=== PATIENT | male | born 2000 | race Hispanic/Latino ===

== ENCOUNTER 2020-01-09 10:39 | Emergency (ER) | payer SELFPAY ==
[~2020-01-09] VITALS: Ht 172.7 cm; Wt 56.7 kg
--- NOTE | 2020-01-09 11:09 | Emergency Department Note ---
History of Present Illnes History of Present Illness Chief Complaint: General Medicine Complaints History of Present Illness This is a 19 year old male LAST NIGHT HAD TINGLING TO RIGHT EYE, TODAY WITH SWELLING AND DRAINAGE; PATIENT DENIES PAIN, BUT HAS BLURRY VISION. PATIENT STATES THAT FOR THE LAST COUPLE OF MONTHS HE HAS HAD ISSUES WITH HIVES AND HAS BEEN TAKING BENADRYL. Historian: Patient Arrival Mode: Car Security Incident Response Engineer Required: No Onset (how long ago): day(s) (1) Location: RIGHT EYE Severity: mild Onset quality: sudden Timing of current episode: constant Chronicity: new Context: Denies recent illness Relieving factors: none Exacerbating factors: none Past Medical/Family History Physician Review I have reviewed the patient's past medical and family history. Any updates have been documented here. Past Medical History Recent Fever: No Clinical Suspicion of Infectio: No New/Unexplained Change in Ment: No Past Medical History: None Past Surgical History: None Social History Smoking Cessation: Never Smoker Counseling Performed: No Alcohol Use: None Any Illegal Drug Use: No TB Exposure/Symptoms: No Physically hurt or threatened: No Family History Family history of heart diseas: No Other Any Pre-Existing Lines (PICC,: No Review of Systems Review of Systems Constitutional: Reports no symptoms EENTM: Reports as per HPI; Denies eye pain Cardiovascular: Reports no symptoms Respiratory: Reports no symptoms Gastrointestinal: Reports no symptoms Genitourinary: Reports no symptoms Musculoskeletal: Reports no symptoms Integumentary: Reports no symptoms Neurological: Reports no symptoms Psychological: Reports no symptoms Endocrine: Reports no symptoms Hematological/Lymphatic: Reports no symptoms Physical Exam Related Data Allergies: Coded Allergies: No Known Allergies (Unverified , 01/09/20) Triage Vital Signs Vital Signs Date Time Temp Pulse Resp B/P (MAP) Pulse Ox O2 Delivery O2 Flow Rate FiO2 01/09/20 10:45 97.9 97 16 131/88 100 Room Air Vital signs reviewed: Yes Physical Exam CONSTITUTIONAL Constitutional: Present well-developed, Present well-nourished HENT HENT: Present normocephalic, Present atraumatic, Present oropharynx clear/moist, Present nose normal HENT L/R: Present left ext ear normal, Present right ext ear normal EYES Eyes: Reports PERRL, Reports EOM normal, Reports other (MILD RIGHT CONJ INJECTION, MILD CRUST ON RIGHT BOTTOM LID MARGIN, MILD SWELLING OF MEDIAL ASPECT OF RIGHT LOWER LID BUT NO STYE NOTED); Denies left eye discharge, Denies right eye discharge NECK Neck: Present ROM normal PULMONARY Pulmonary: Present effort normal, Present breath sounds normal CARDIOVASCULAR Cardiovascular: Present regular rhythm, Present heart sounds normal, Present capillary refill normal, Present normal rate GASTROINTESTINAL Abdominal: Present soft, Present nontender, Present bowel sounds normal GENITOURINARY Genitourinary: Present exam deferred SKIN Skin: Present warm, Present dry MUSCULOSKELETAL Musculoskeletal: Present ROM normal NEUROLOGICAL Neurological: Present alert, Present oriented x 3, Present no gross motor or sensory deficits PSYCHOLOGICAL Psychological: Present mood/affect normal, Present judgement normal Assessment & Plan Medical Decision Making MDM CONJUNCTIVITIS/BLAPHARITIS Reassessment Reassessment DC HOME, POLYTRIM SOLN 1 GTT Q3H RIGHT EYE X 1 WEEK, LID SCRUBS WITH CETAPHIL GENTLE, WARM COMPRESSES, F/U PCP/OPHTHO DR GREGORY Assessment & Plan Final Impression: (1) Conjunctivitis (2) Blepharitis of eyelid of right eye Depart Disposition: HOME, SELF-CARE Last Vital Signs Date Time Temp Pulse Resp B/P (MAP) Pulse Ox O2 Delivery O2 Flow Rate FiO2 01/09/20 10:45 97.9 97 16 131/88 100 Room Air CLARY COOMBS MD Jan 09, 2020 11:09
--- OUTSIDE RECORDS SUMMARY | 2020-01-10 16:38 | XMS REPORT | Clinical Summary ---
Author Author [facility] Address Unknown Phone Unavailable Care Team Providers Care Salad Bar Clerk Name Role Phone PCP Unavailable Allergies No Known Allergies Medications End Date Status Medication Sig Dispensed Refills Start Date Active diphenhydrAMINE Take 25 mg by 0 (BENADRYL) 25 mg capsule mouth every 6 (six) hours as needed for Itching. 07/08/2020 Active albuterol HFA (VENTOLIN Inhale 1-2 1 Inhaler 0 HFA) 90 mcg/actuation puffs by 0 inhaler mouth via inhaler every 6 (six) hours as needed for Wheezing. Active Problems Not on file Encounters Care Team Description Date Type Specialty Roosevelt Grimaldo MD Dyspnea, unspecified type (Primary Dx) 07/09/2019 Emergency Emergency Medicine 07/09/2019 Orders Only General Internal Me dicine 07/09/2019 Travel after 01/08/2019 Family History Medical History Relation Name Comments Asthma Father Heart disease Father Asthma Mother Relation Name Status Comments Father Mother Social History Date Tobacco Use Types Packs/Day Years Used Never Smoker Smokeless Tobacco: Never Used Alcohol Use Drinks/Week oz/Week Comments No Alcohol Habits Answer Date Recorded How often do you have a drink containing alcohol? Never 07/09/2019 How many drinks containing alcohol do you have on No t asked a typical day when you are drinking? How often do you have six or more drinks on one Not asked occasion? Sex Assigned at Date Recorded Not on file Industry Job Start Date Occupation Not on file Not on file Not on file Travel End Travel History Travel Start No recent travel history available. Last Filed Vital Signs Time Taken Vital Sign Reading 07/09/2019 1:07 PM CDT Blood Pressure 130/83 07/09/2019 1:07 PM CDT Pulse 90 07/09/2019 1:07 PM CDT Temperature 36.3 C (97.4 F) 07/09/2019 1:07 PM CDT Respiratory Rate 16 07/09/2019 1:07 PM CDT Oxygen Saturation 100% - Inhaled Oxygen - Concentration 07/09/2019 1:07 PM CDT Weight 59 kg (130 lb) 07/09/2019 1:07 PM CDT Height 177.8 cm (5' 10") 07/09/2019 1:07 PM CDT Body Mass Index 18.65 Plan of Treatment Not on file Procedures Comments Procedure Name Priority Date/Time Associated Diag nosis REPORT OF PROCEDURE - 07/10/2019 ENDOSCOPY SCAN 1:00 PM CDT REPORT OF PROCEDURE - 07/10/2019 ENDOSCOPY SCAN 1:00 PM CDT ECG 12-LEAD STAT 07/09/2019 2:31 PM CDT ED ECG INTERPRETATION Routine 07/09/2019 1:36 PM CDT ECG 12-LEAD Routine 07/09/2019 1:01 PM CDT ECG 12-LEAD Routine 07/09/2019 1:01 PM CDT Procedure Note - Interface, External Ris In - 07/09/2019 1:14 PM CDT Ventricula r Rate 78 BPM Atrial Rate 78 BPM P-R Interval 118 ms QRS Duration 80 ms Q-T Interval 368 ms QTC Calculatio n(Bazett) 419 ms P Wayside 29 degrees R Wayside 79 degrees T Wayside 56 degrees Normal sinus rhythm Normal ECG No previous ECGs available after 01/08/2019 Results * EKG-SCANNED (07/10/2019 1:00 PM CDT) Only the most recent of 2 results within the time period is included. Narrative Performed At This result has an attachment that is n ot available. * ECG 12 lead (07/09/2019 2:31 PM CDT) Only the most recent of 2 results within the time period is included. Specimen Narrative Performed At Ventricular Rate 79 BPM GE MUSE Atrial Rate 79 BPM P-R Interval 134 ms QRS Duration 82 ms Q-T Interval 366 ms QTC Calculation(Bazett) 419 ms P Wayside 60 degrees R Wayside 75 degrees T Wayside 55 degrees Normal sinus rhythm with sinus arrhythm ia Normal ECG When compared with ECG of 09-JUL-2019 1 3:01, No significant change was found Confirmed by MD GEOFFREY, BELLA ([id number] ) on 07/12/2019 7:16:03 PM Procedure Note Interface, External Ris In - 07/12/2019 7:16 PM CDT Ventricular Rate 79 BPM Atrial Rate 79 BPM P-R Interval 134 ms QRS Duration 82 ms Q-T Interval 366 ms QTC Calculation(Bazett) 419 ms P Wayside 60 degrees R Wayside 75 degrees T Wayside 55 degrees Normal sinus rhythm with sinus arrhythmia Normal ECG When compared with ECG of 09-JUL-2019 13:01, No significant change was found Confirmed by MD GEOFFREY, BELLA ([id number]) on 07/12/2019 7:16:03 PM Performing Organization Address City/State/[facility] Ph one Number GE MUSE * ECG/EKG Interpretation (07/09/2019 1:36 PM CDT) Narrative Performed At Roosevelt Grimaldo MD 07/09/2019 2:35 PM ECG/EKG Interpretation Date/Time: 07/09/2019 2:35 PM Performed by: Roosevelt Grimaldo MD Authorized by: Roosevelt Grimaldo MD The ECG was interpreted by ED physician . The ECG is interpreted as sinus rhythm. Rate is normal rate. Clinical I mpression: non-specific ECG after 01/08/2019
--- OUTSIDE RECORDS SUMMARY | 2020-01-10 16:39 | XMS REPORT | Continuity of Care Document ---
Author Author [facility] t Organization [facility] Address [address] [place] [address] Phone Unavailable Care Team Providers Care Assisted Living Home Director Name Role Phone NO, PCP PCP Unavailable Jhon PARKER, Sd Attphys Cameron Jacobs DO Attphys Dillan PARKER, Juve Albert Attphys Payers Payer Name Policy Type Policy Number Effective Date Expiration Date S ource Problems Condition Name Condition Details Condition Category Status Onset Date Resolution Date Last Treatment Date Treating Clinician Comments Source Conjunctivitis Problem Active C [facility] Blepharitis of eyelid of right eye Problem Active [facility] Allergies, Adverse Reactions, Alerts Allergy Name Allergy Type Status Severity Reaction(s) Onset Date Inacti ve Date Treating Clinician Comments Source No Known Allergies DA Active U 2019-10-03 00:00:00 [facility] No Known Allergies DA Active U 2019-07-07 00:00:00 [facility] No Known Allergies DA Active U 2019-04-07 00:00:00 [facility] Family History Family Member Diagnosis Comments Start Date Stop Date Source Natural father Asthma [facility] Natural father Heart disease [facility] Natural mother Asthma [facility] Social History Social Habit Start Date Stop Date Quantity Comments Source History SDOH Alcohol Std Drinks [facility] History SDOH Alcohol Binge [facility] Sex Assigned At [facility] History SDOH Alcohol Frequency 2019-07-09 00:00:00 2019-07-09 00:00:0 0 1 [facility] Smoking Status Start Date Stop Date Source Never smoker [facility] Medications Ordered Medication Name Filled Medication Name Start Date Stop Da te Current Medication? Ordering Clinician Indication Dosage Frequency Signature (SIG) Comments Components Source diphenhydrAMINE (BENADRYL) 25 mg capsule 2019-07-09 13:09:31 Yes 25mg Take 25 mg by mouth every 6 (six) hours as needed for Itching. [facility] albuterol HFA (VENTOLIN HFA) 90 mcg/actuation inhaler 2019-07-09 00:00:00 2020-07-08 23:59:00 No 1{puff} Inhal e 1-2 puffs by mouth via inhaler every 6 (six) hours as needed for Wheezing. [facility] Vital Signs Vital Name Observation Time Observation Value Comments Source Weight 2020-01-09 10:45:00 125 [lb_av] [facility] BMI (Body Mass Index) 2020-01-09 10:45:00 19.0 kg/m2 [facility] Systolic blood pressure 2019-07-09 13:07:00 130 mm[Hg] [facility] Diastolic blood pressure 2019-07-09 13:07:00 83 mm[Hg] [facility] Heart rate 2019-07-09 13:07:00 90 /min [facility] Body temperature 2019-07-09 13:07:00 36.33 Adela [facility] Respiratory rate 2019-07-09 13:07:00 16 /min [facility] Body height 2019-07-09 13:07:00 177.8 cm [facility] Body weight Measured 2019-07-09 13:07:00 58.968 kg [facility] BMI 2019-07-09 13:07:00 18.65 kg/m2 [facility] Oxygen saturation in Arterial blood by Pulse oximetry 07-08 13:07:00 100 /[facility] Procedure Date / Time Performed Performing Clinician [facility] e REPORT OF PROCEDURE - ENDOSCOPY SCAN 2019-07-10 13:00:37 Pro vider, Default Scanning [facility] REPORT OF PROCEDURE - ENDOSCOPY SCAN 2019-07-10 13:00:32 Pro vider, Default Scanning [facility] ECG 12-LEAD 2019-07-09 14:31:28 Roosevelt Grimaldo [facility] ED ECG INTERPRETATION 2019-07-09 13:36:34 Roosevelt Grimaldo [facility] ECG 12-LEAD 2019-07-09 13:01:34 Unknown, Hl7 Doctor [facility] Plan of Care Planned Activity Planned Date Details Comments Source Instructions Eyelid Infection [facility] Encounters Start Date/Time End Date/Time Encounter Type Admission Type Attendi [facility] [[email or web address] Care Department Encounter ID Source 2020-01-09 11:13:00 2020-01-09 11:13:00 Departed Emergency Room [facility] [id number] [facility] 2019-10-12 22:19:57 2019-10-12 23:11:00 Emergency C Sd zavala, Sd [facility] ([facility]) [id number] 2000 Results Test Description Test Time Test Comments Results Result Comments Source ECG 12 lead 2019-07-12 19:16:05 Interface, E xternal Ris In 07/12/2019 7:16 PM CDTVentricular Rate 79 BPMAtrial Rate 79 BPMP-R Interval 134 msQRS Duration 82 msQ-T Interval 366 msQTC Calculation(Alvin) 419 msP Lolo 60 degreesR Lolo 75 degreesT Lolo 55 degreesNormal sinus rhythm with sinus arrhythmiaNormal ECGWhen compared with ECG of 09-JUL-2019 13:01,No significant change was foundConfirmed by MD GEOFFREY, DUKECeleste ([id number]) on 07/12/2019 7:16:03 PM [facility] ECG/EKG Interpretation 2019-07-09 13:36:34 Roosevelt Grimaldo MD 07/09/2019 2:35 PMECG/EKG InterpretationDate/Time: 07/09/2019 2:35 PMPerformed by: Roosevelt Grimaldo MDAuthorized by: Roosevelt Grimaldo MD The ECG was interpreted by ED physician. The ECG is interpreted as sinus rhythm. Rate is normal rate. Clinical Impression: non-specific ECG [facility] URINALYSIS COMPLETE 2019-07-07 20:57:00 Test Item UA COLOR (test code = COLU) YELLOW YELLOW UA APPEARANCE (test code = APPU) CLEAR CLEAR UA GLUCOSE DIPSTICK (test code = DGLUU) NEGATIVE mg/dL NEGATIVE UA BILIRUBIN DIPSTICK (test code = BILU) NEGATIVE mg/dL NEGATIVE UA KETONE DIPSTICK (test code = KETU) 20 (1+) mg/dL NEGATIVE A UA SPECIFIC GRAVITY (test code = SGU) 1.035 1.001-1.035 UA BLOOD DIPSTICK (test code = SHANON) Negative mg/dL NEGATIVE UA PH DIPSTICK (test code = PRINCESS) 6.0 5.0-8.0 UA PROTEIN DIPSTICK (test code = PROU) 100 (2+) mg/dL NEGATIVE A UA UROBILINIOGEN DIPSTICK (test code = URO) Normal mg/dL NEGATIVE UA NITRITE DIPSTICK (test code = MIKALA) NEGATIVE NEGATIVE UA LEUKOCYTE ESTERASE W REFLEX (test code = LEUUR) NEGATIVE Liborio/uL NEGATIVE UA WBC (test code = WBCU) 0-5 per HPF 0-5 UA RBC (test code = RBCU) 0-2 #/HPF 0-5 UA EPITHELIAL CELLS (test code = EPIU) Rare (0-1/hpf) per HPF FEW UA BACTERIA (test code = BACU) FEW #/HPF NONE UA MUCUS (test code = MUCU) FEW #/LPF FEW Urine Source? Clean CatchDRUGS OF ABUSE SCREEN [id number] 20:57:00* Test Item Value Reference Range Interpretation Comments URN COCAINE (test code = COCAURN) NEGATIVE <300 ng/mL URN CANNABINOIDS (test code = CANNABURN) POSITIVE <50 ng/mL A This test provides only a preliminary test result. A morespecific alternate chemical method must be used in order toobtain a confirmed analytical result. Gas chromatography/mass spectrometry (GC/MS) is thepreferred confirmatory method. Other chemical confirmationmethods are available. Clinical consideration and professional judgment should be applied to any drug of abusetest result, particularly when preliminary positive resultsare used.Unconfirmed screening results must not be used fornon-medical purposes (e.g., employment testing, legaltesting). URN AMPHETAMINE (test code = AMPHETURN) NEGATIVE <1000 ng/mL URN BARBITURATE (test code = BARBITURN) NEGATIVE <200 ng/mL URN BENZODIAZEPINE (test code = BENZOURN) NEGATIVE <200 ng/mL URN OPIATES (test code = OPIATURN) NEGATIVE <300 ng/mL URN PHENCYCLIDINE (PCP) (test code = PHENCURN) NEGATIVE <25 ng/ mL URN METHADONE (test code = METHAURN) NEGATIVE <300 ng/mL Urine Source? Clean CatchURINALYSIS [id number] 20:27:00* Test Item Value Reference Range Interpretation Comments UA COLOR (test code = COLU) YELLOW YELLOW UA APPEARANCE (test code = APPU) CLEAR CLEAR UA GLUCOSE DIPSTICK (test code = DGLUU) NEGATIVE mg/dL NEGATIVE UA BILIRUBIN DIPSTICK (test code = BILU) NEGATIVE mg/dL NEGATIVE UA KETONE DIPSTICK (test code = KETU) 20 (1+) mg/dL NEGATIVE A UA SPECIFIC GRAVITY (test code = SGU) 1.035 1.001-1.035 UA BLOOD DIPSTICK (test code = SHANON) Negative mg/dL NEGATIVE UA PH DIPSTICK (test code = PRINCESS) 6.0 5.0-8.0 UA PROTEIN DIPSTICK (test code = PROU) 100 (2+) mg/dL NEGATIVE A UA UROBILINIOGEN DIPSTICK (test code = URO) Normal mg/dL NEGATIVE UA NITRITE DIPSTICK (test code = MIKALA) NEGATIVE NEGATIVE UA LEUKOCYTE ESTERASE W REFLEX (test code = LEUUR) NEGATIVE Liborio/uL NEGATIVE UA WBC (test code = WBCU) per HPF 0-5 UA RBC (test code = RBCU) #/HPF 0-5 UA EPITHELIAL CELLS (test code = EPIU) per HPF FEW UA BACTERIA (test code = BACU) #/HPF NONE UA MUCUS (test code = MUCU) #/LPF FEW Urine Source? Clean CatchDRUGS OF ABUSE SCREEN [id number] 20:27:00* Test Item Value Reference Range Interpretation Comments URN COCAINE (test code = COCAURN) NEGATIVE <300 ng/mL URN CANNABINOIDS (test code = CANNABURN) POSITIVE <50 ng/mL A This test provides only a preliminary test result. A morespecific alternate chemical method must be used in order toobtain a confirmed analytical result. Gas chromatography/mass spectrometry (GC/MS) is thepreferred confirmatory method. Other chemical confirmationmethods are available. Clinical consideration and professional judgment should be applied to any drug of abusetest result, particularly when preliminary positive resultsare used.Unconfirmed screening results must not be used fornon-medical purposes (e.g., employment testing, legaltesting). URN AMPHETAMINE (test code = AMPHETURN) NEGATIVE <1000 ng/mL URN BARBITURATE (test code = BARBITURN) NEGATIVE <200 ng/mL URN BENZODIAZEPINE (test code = BENZOURN) NEGATIVE <200 ng/mL URN OPIATES (test code = OPIATURN) NEGATIVE <300 ng/mL URN PHENCYCLIDINE (PCP) (test code = PHENCURN) NEGATIVE <25 ng/ mL URN METHADONE (test code = METHAURN) NEGATIVE <300 ng/mL Urine Source? Clean CatchCBC W/AUTO [id number] 20:25:00* Test Item Value Reference Range Interpretation Comments WHITE BLOOD CELL (test code = WBC) 6.4 K/mm3 4.5-12.5 N RED BLOOD CELL (test code = RBC) 4.82 mill/mm3 4.0-5.8 N HEMOGLOBIN (test code = HGB) 14.7 gram/dL 13.0-17.5 N HEMATOCRIT (test code = HCT) 44.4 % 42.0-52.0 N MEAN CELL VOLUME (test code = MCV) 92.1 fL 80-98 N MEAN CELL HGB (test code = MCH) 30.5 picogram 27.0-33.0 N MEAN CELL HGB CONCETRATION (test code = MCHC) 33.1 gram/dL 33.0-36. 0 N RED CELL DISTRIBUTION WIDTH (test code = RDW) 12.5 % 11.6-16. 2 N RED CELL DISTRIBUTION WIDTH SD (test code = RDW-SD) 42.4 fL 37 .0-51.0 N PLATELET COUNT (test code = PLT) 187 K/mm3 150-450 N MEAN PLATELET VOLUME (test code = MPV) 10.4 fL 6.7-11.0 N NEUTROPHIL % (test code = NT%) 57.0 % 39.0-69.0 N IMMATURE GRANULOCYTE % (test code = IG%) 0.3 % 0.0-5.0 N LYMPHOCYTE % (test code = LY%) 35.7 % 25.0-55.0 N MONOCYTE % (test code = MO%) 6.0 % 0.0-10.0 N EOSINOPHIL % (test code = EO%) 0.5 % 0.0-5.0 N BASOPHIL % (test code = BA%) 0.5 % 0.0-1.0 N NUCLEATED RBC % (test code = NRBC%) 0.0 % 0-0 N NEUTROPHIL # (test code = NT#) 3.62 K/mm3 1.8-7.7 N IMMATURE GRANULOCYTE # (test code = IG#) 0.02 x10 3/uL 0-0.03 N LYMPHOCYTE # (test code = LY#) 2.27 K/mm3 1.0-5.0 N MONOCYTE # (test code = MO#) 0.38 K/mm3 0-0.8 N EOSINOPHIL # (test code = EO#) 0.03 K/mm3 0.0-0.5 N BASOPHIL # (test code = BA#) 0.03 K/mm3 0.0-0.2 N NUCLEATED RBC # (test code = NRBC#) 0.00 K/mm3 0.0-0.1 N URINALYSIS [id number] 19:54:00* Test Item Value Reference Range Interpretation Comments UA COLOR (test code = COLU) YELLOW YELLOW UA APPEARANCE (test code = APPU) CLEAR CLEAR UA GLUCOSE DIPSTICK (test code = DGLUU) NEGATIVE mg/dL NEGATIVE UA BILIRUBIN DIPSTICK (test code = BILU) NEGATIVE mg/dL NEGATIVE UA KETONE DIPSTICK (test code = KETU) 20 (1+) mg/dL NEGATIVE A UA SPECIFIC GRAVITY (test code = SGU) 1.035 1.001-1.035 UA BLOOD DIPSTICK (test code = SHANON) Negative mg/dL NEGATIVE UA PH DIPSTICK (test code = PRINCESS) 6.0 5.0-8.0 UA PROTEIN DIPSTICK (test code = PROU) 100 (2+) mg/dL NEGATIVE A UA UROBILINIOGEN DIPSTICK (test code = URO) Normal mg/dL NEGATIVE UA NITRITE DIPSTICK (test code = MIKALA) NEGATIVE NEGATIVE UA LEUKOCYTE ESTERASE W REFLEX (test code = LEUUR) NEGATIVE Liborio/uL NEGATIVE UA WBC (test code = WBCU) per HPF 0-5 UA RBC (test code = RBCU) per HPF 0-5 UA EPITHELIAL CELLS (test code = EPIU) per HPF Few UA BACTERIA (test code = BACU) per HPF NONE Urine Source? Clean CatchDRUGS OF ABUSE SCREEN [id number] 19:54:00* Test Item Value Reference Range Interpretation Comments URN COCAINE (test code = COCAURN) <300 ng/mL URN CANNABINOIDS (test code = CANNABURN) <50 ng/mL URN AMPHETAMINE (test code = AMPHETURN) <1000 ng/mL URN BARBITURATE (test code = BARBITURN) <200 ng/mL URN BENZODIAZEPINE (test code = BENZOURN) <200 ng/mL URN OPIATES (test code = OPIATURN) <300 ng/mL URN PHENCYCLIDINE (PCP) (test code = PHENCURN) <25 ng/ mL URN METHADONE (test code = METHAURN) <300 ng/mL Urine Source? 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 COMPARISON: None available. Location: TH. No acute infiltrates, effusion or conge stion is noted. The cardiac and mediastinal silhouette are within normal limits. IMPRESSION: No acute infiltra hemant, effusion or congestion. at 1947 Reported and signed by: Rohan rBiceño M.D. CC: Talha Robles MD; Emilie Womack Technologist: ZARIA LI Trnscrd Date/Time/By: 07/07/2019 (1947) : By: [email or web address] Orig Pr int D/T: S: 07/07/2019 (1950) PAGE 1 Signed Report BASIC METABOLIC [id number] 19:35:00* Test Item Value Reference Range Interpretation Comments SODIUM (test code = NA) 140 mmol/L 136-145 N POTASSIUM (test code = K) 3.4 mmol/L 3.5-5.1 L CHLORIDE (test code = CL) 108.0 mmol/L 98-107 H CARBON DIOXIDE (test code = CO2) 28.0 mmol/L 21-32 N ANION GAP (test code = GAP) 7.4 10-20 L GLUCOSE (test code = GLU) 122 mg/dL 74-106 H BLOOD UREA NITROGEN (test code = BUN) 19 mg/dL 7-18 H GLOMERULAR FILTRATION RATE (test code = GFR) > 60 mL/min >=60 Estimated GFR by using Modified MDRD formula.Chronic kidney disease is defined as either kidney damageor GFR <60 mL/min/1.73 m2 for >3 months. CREATININE (test code = CREAT) 0.90 mg/dL 0.7-1.3 N BUN/CREATININE RATIO (test code = BUN/CREA) 21.1 10-20 H CALCIUM (test code = CA) 9.3 mg/dL 8.5-10.1 N BASIC METABOLIC [id number] 19:30:00* Test Item Value Reference Range Interpretation Comments SODIUM (test code = NA) 140 mmol/L 136-145 N POTASSIUM (test code = K) 3.4 mmol/L 3.5-5.1 L CHLORIDE (test code = CL) 108.0 mmol/L 98-107 H CARBON DIOXIDE (test code = CO2) mmol/L 21-32 ANION GAP (test code = GAP) 10-20 GLUCOSE (test code = GLU) mg/dL 74-106 BLOOD UREA NITROGEN (test code = BUN) mg/dL 7-18 GLOMERULAR FILTRATION RATE (test code = GFR) mL/min >=60 CREATININE (test code = CREAT) mg/dL 0.7-1.3 BUN/CREATININE RATIO (test code = BUN/CREA) 10-20 CALCIUM (test code = CA) 9.3 mg/dL 8.5-10.1 N
== END 2020-01-09 11:13 | disposition home or self-care (01) ==
LOC: ER 11:13
DX: H10.501 Unspecified blepharoconjunctivitis, right eye (principal)
CPT/HCPCS: 99282